=== PATIENT | male | born 1955 | race Hispanic/Latino ===

== ENCOUNTER 2022-12-28 11:12 | Outpatient (CLI) | payer MEDICARE, OTHER | END 2022-12-28 11:13 | disposition home or self-care (01) | LOC: RAD 11:12 | PROVIDERS: ATTEND Specialist | DX: M25.562 Pain in left knee (principal) ==

== ENCOUNTER 2023-01-03 10:35 | Outpatient (CLI) | payer OTHER | END 2023-01-03 10:36 | disposition home or self-care (01) | LOC: BICMRI 10:35 | PROVIDERS: ATTEND Specialist | DX: M25.562 Pain in left knee (principal); S80.02XA Contusion of left knee, initial encounter; S83.412A Sprain of medial collateral ligament of left knee, initial encounter; S83.512A Sprain of anterior cruciate ligament of left knee, initial encounter; S83.242A Other tear of medial meniscus, current injury, left knee, initial encounter; M23.92 Unspecified internal derangement of left knee ==

== ENCOUNTER 2023-08-02 14:44 | Outpatient (CLI) | payer OTHER | END 2023-08-02 14:45 | disposition home or self-care (01) | LOC: BICULT 14:44 | PROVIDERS: ATTEND Specialist | DX: R09.89 Other specified symptoms and signs involving the circulatory and respiratory systems (principal) | CPT/HCPCS: 93880 ==